=== PATIENT | female | born 1970 | race Caucasian/White ===

== ENCOUNTER → 2017-12-24 | Outpatient (CLI) | payer OTHER | LOC: M PLARAD 10:34 | DX: G31.84 Mild cognitive impairment of uncertain or unknown etiology (principal); G43.009 Migraine without aura, not intractable, without status migrainosus; I67.82 Cerebral ischemia | CPT/HCPCS: 70551 ==

== ENCOUNTER → 2018-04-29 | Outpatient (CLI) | payer OTHER | LOC: M PLARAD 08:50 | DX: S83.271A Complex tear of lateral meniscus, current injury, right knee, initial encounter (principal); S83.411A Sprain of medial collateral ligament of right knee, initial encounter; M22.41 Chondromalacia patellae, right knee; M25.461 Effusion, right knee; M67.51 Plica syndrome, right knee; X58.XXXA Exposure to other specified factors, initial encounter; Y92.89 Other specified places as the place of occurrence of the external cause | CPT/HCPCS: 73721 ==